=== PATIENT | male | born 1975 | race Caucasian/White ===

== ENCOUNTER 2018-04-25 17:45 | Emergency (ER) | payer SELFPAY ==
[~2018-04-25] VITALS: Ht 177.8 cm; Wt 111.6 kg
--- NOTE | 2018-04-25 18:18 | NUR ---
TO ROOM 16 WITH FAMILY
[2018-04-25 18:28] LABS: RAPID INFLUENZA A Negative (Negative); RAPID INFLUENZA B Negative (Negative)
[2018-04-25] MEDS ORDERED: ACETAMINOPHEN 500 MG TABLET PO ONE (18:30)
--- NOTE | 2018-04-25 18:33 | NUR ---
PT. IS A & O X 4 WITH C/O NAUSEA, VOMITING, FEVER, SORE THROAT AND CHEST WALL PAIN X TODAY. 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 PT. IS PINK,WARM AND DRY. LUNGS ARE CTA. MM ARE PINK AND MOIST WITH PULSES +2 THROUGHOUT. PT. IS RESTING WITH THE HOB ELEVATED GREATER THAN 30 DEGREES AND THE SIDERAILS REMAIN UP X 2 WITH THE CALL LIGHT IN PLACE.
--- NOTE | 2018-04-25 18:55 | NUR ---
ASSUMED CARE OF PATIENT. BEDSIDE REPORT GIVEN FROM LUKE EWING
[2018-04-25] MEDS ORDERED: IBUPROFEN 600 MG TABLET ONE (18:58)
[2018-04-25] MEDS ORDERED: ACETAMINOPHEN 500 MG TABLET ONE (18:58)
[2018-04-25] MEDS ORDERED: ONDANSETRON ODT 4 MG ONE (18:58)
[2018-04-25] MEDS ORDERED: OMNIPAQUE 350 MG/ML, 100ML BOTTLE ONE (19:00)
[2018-04-25] MEDS ORDERED: IBUPROFEN 600 MG TABLET PO ONE (19:00)
[2018-04-25] MEDS ORDERED: SODIUM CHLORIDE FLUSH 10ML SYR IVF ONE (19:00)
[2018-04-25] MEDS ORDERED: ONDANSETRON 2MG/ML, 2ML IVPush ONE (19:00)
[2018-04-25] MEDS ORDERED: ONDANSETRON ODT 4 MG PO ONE (19:00)
[2018-04-25] MEDS ORDERED: SODIUM CHLORIDE 0.9% 1,000ML IVBOLUS ONE (19:00)
[2018-04-25] MEDS ORDERED: ONDANSETRON 2MG/ML, 2ML ONE (19:07)
--- NOTE | 2018-04-25 19:26 | NUR ---
LAB IN ROOM.
[2018-04-25 19:45] LABS: MEAN CORPUSCULAR HEMOGLOBIN 29.8 pg (27.5-34.5); MEAN CORPUSCULAR VOLUME 87.7 fL (81-97); MEAN PLATELET VOLUME 9.1 fL (7.4-10.4); PLATELET COUNT 210 x10^3/uL (130-400); RED BLOOD COUNT 4.68 x10^6/uL (4.38-5.82); RED CELL DISTRIBUTION WIDTH 14.3 % (9.4-14.8)
[2018-04-25 19:54] LABS: ALANINE AMINOTRANSFERASE 43 U/L (12-78); ALBUMIN 3.9 g/dL (3.4-5.0); ANION GAP 4 mmol/L (5-15); CALCIUM 8.4 mg/dL (8.5-10.1); CHLORIDE 109 mmol/L (98-107); CREATININE 1.12 mg/dL (0.7-1.3)
[2018-04-25 19:59] LABS: ALKALINE PHOSPHATASE 57 U/L (45-117); BILIRUBIN,TOTAL 0.4 mg/dL (0.2-1.0); TOTAL PROTEIN 7.7 g/dL (6.4-8.2); TROPONIN I < 0.015 ng/mL (0.000-0.045)
[2018-04-25 20:12] LABS: BASOPHILS # (AUTO) 0.03 x10^3/uL (0-0.1); BASOPHILS % (AUTO) 0 % (0-1); EOSINOPHILS % (AUTO) 0 % (1-7); LYMPHOCYTES # (AUTO) 0.88 x10^3/uL (1-3.4); LYMPHOCYTES % (AUTO) 5 % (22-44); MD SCAN; MONOCYTES # (AUTO) 0.88 x10^3/uL (0.2-0.8); MONOCYTES % (AUTO) 5 % (2-9); NEUTROPHILS # (AUTO) 14.77 x10^3/uL (1.8-6.8); NEUTROPHILS % (AUTO) 89 % (42-75)
[2018-04-25] MEDS ORDERED: MAALOX/HYOSCYAMINE/LIDOCAINE 45 ML BTL PO ONE (20:30)
[2018-04-25] MEDS ORDERED: CIPROFLOXACIN 500 MG TABLET PO ONE (20:30)
[2018-04-25] MEDS ORDERED: metroNIDAZOLE 500 MG TABLET PO ONE (20:30)
[2018-04-25] MEDS ORDERED: MAALOX/HYOSCYAMINE/LIDOCAINE 45 ML BTL ONE (20:46)
[2018-04-25] MEDS ORDERED: metroNIDAZOLE 500 MG TABLET ONE (20:46)
[2018-04-25] MEDS ORDERED: CIPROFLOXACIN 500 MG TABLET ONE (20:46)
[2018-04-25 21:21] VITALS: BP 106/60
--- NOTE | 2018-04-25 21:30 | NUR ---
DR SERRANO AWARE OF VS AT TIME OF DISCHARGE. MD HAS UPDATED PATIENT ON SIGNS AND SYMPTOMS OF WHEN TO RETURN TO ED. PT COMMUNICATED UNDERSTANDING. PT DISCHARGED PER DR SERRANO.
== END 2018-04-25 21:32 | disposition home or self-care (01) ==
LOC: ED 20:10
DX: A04.4 Other intestinal Escherichia coli infections (principal); K52.9 Noninfective gastroenteritis and colitis, unspecified; R06.02 Shortness of breath
CPT/HCPCS: 36415; 71046; 74177; 80053; 84484; 85025; 87400; 93005; 96361; 96374; 99284; J2405; J7030; Q9967